=== PATIENT | male | born 1985 | race Caucasian/White ===

== ENCOUNTER 2018-02-08 08:13 | Day surgery (SDC) | payer BC, OTHER ==
[~2018-02-08 08:13] MED LIST: Buffered Lidocaine 0.9% SYRIN* 5 ML/SYR SYRINGE INTRADERM ONE; Ibuprofen TAB* 400 MG PO ONE; Sodium Citrate/Citric Acid* 15 ML UDC PO ONE
[2018-02-08] MEDS ORDERED: Ibuprofen TAB* 400 MG ONE (08:30)
[2018-02-08] MEDS ORDERED: Sodium Citrate/Citric Acid* 15 ML UDC ONE (08:30)
[2018-02-08] MEDS ORDERED: ceFAZolin 2 GM PREMIX (*) 2 GM/50 ML BAG IVPB ONE (08:30)
[2018-02-08] MEDS ORDERED: Saline, Bacteriostatic* 30 ML VIAL ONE (09:00)
[2018-02-08] MEDS ORDERED: Bupivacaine 0.5% SDV PF* 30ML VIAL ONE (09:00)
[2018-02-08] MEDS ORDERED: Propofol* 10 MG/ML 20 ML BTL IV PUSH ONE (09:23)
[2018-02-08] MEDS ORDERED: fentaNYL* 50 MCG/ML 2 ML VIAL (100 MCG VIAL) ONE ×2 (09:23→11:12)
[2018-02-08] MEDS ORDERED: Ketorolac INJ* 30 MG/ML 1 ML VIAL ONE (09:23)
[2018-02-08] MEDS ORDERED: Atracurium* 10 MG/ML 10 ML VIAL ONE (09:25)
[2018-02-08] MEDS ORDERED: Acetaminophen TAB* 325 MG PO PRN (10:04)
[2018-02-08] MEDS ORDERED: Naloxone* 0.4 MG/ML 1 ML VIAL IV PRN (10:04)
[2018-02-08] MEDS ORDERED: DiMENhydriNATE IV* 50 MG/ML VIAL IV PUSH PRN (10:04)
--- NOTE | 2018-02-08 11:00 | OP ---
Operative Report - Blank - Operative Report Date of Operation: 02/08/18 Note: Pre-op Dx: Bilateral Inguinal Hernia Post-op Dx: Same Procedure: Bilateral Laparoscopic Inguinal Hernia Repair with Mesh Surgeon: Brianne Assist: POPEYE Denny Anesthesia: GET IV Fluids: 800mL RL EBL: <10mL Specimen: None Drains: None Complications: None Findings: Dictated
[2018-02-08] MEDS ORDERED: Ibuprofen TAB* 600 MG PO PRN (11:01)
[2018-02-08] MEDS ORDERED: HYDROcodone/ACETAMIN 5-325 MG* 1 TAB PO PRN (11:01)
[2018-02-08] MEDS: fentaNYL* 50 MCG/ML 2 ML VIAL (100 MCG VIAL) IV PRN ×2 (11:13→11:18)
[2018-02-08] MEDS ORDERED: oxyCODONE TAB* 5 MG TAB ONE ×2 (11:27→11:51)
[2018-02-08] MEDS: oxyCODONE TAB* 5 MG TAB PO PRN ×2 (11:28→11:52)
[2018-02-08] MEDS ORDERED: Acetaminophen TAB* 325 MG ONE (11:51)
[2018-02-08 12:59] VITALS: BP 112/63
--- NOTE | 2018-02-10 22:18 | OP ---
CC: [facility] [place] * DATE OF OPERATION: 02/08/18 - [facility] DATE OF : 85. SURGEON: Alec Decker M.D. PUMP AND STILL OPERATOR: Dr. Galaviz. ANESTHESIOLOGIST: Dr. Castro. ANESTHESIA: General endotracheal. PRE-OP DIAGNOSIS: Bilateral inguinal hernias. POST-OP DIAGNOSIS: Bilateral inguinal hernias. OPERATIVE PROCEDURE: Laparoscopic preperitoneal repair of bilateral inguinal hernias with mesh and peritoneoscopy. ESTIMATED BLOOD LOSS: Minimal. IV FLUIDS: Crystalloids. SPECIMEN: None. DRAINS: None. COMPLICATIONS: None. COUNTS: The instrument, needle, and sponge counts were correct. DESCRIPTION OF PROCEDURE: The patient was brought to the operating room and placed on table supine. Sequential compression devices were placed on both lower extremities. General anesthesia was administered. Freitas catheter was placed. He was administered intravenous antibiotics and he was prepped and draped in the usual sterile fashion. Time-out was performed. Local anesthetic was infiltrated into the skin and soft tissue prior to each incision. The initial incision was a curvilinear infraumbilical incision and the anterior rectus fascia to the right of midline was incised transversally and the underlying muscles retracted laterally and the preperitoneal balloon dissector was placed down to the pubic symphysis. Insufflation was performed under direct visualization and then the balloon dissector was removed and replaced with a 12-mm blunt port. Under direct visualization, two 5-mm ports were placed in the lower midline. Dissection proceeded from the midline laterally towards the left side maintaining the inferior epigastric vessels anteriorly. The dissection proceeded laterally down to the anterior superior iliac spine. An indirect inguinal hernia sac was encountered and this was dissected free from cord structures. The sac was twisted upon itself, clipped, and then divided leaving the distal end open. The proximal end was ligated with 2-0 Vicryl suture tie as well. Peritoneal sac was dissected well off the retroperitoneal structures to allow adequate space for the Bard 3DMax large size mesh. Dissection then proceeded from the midline laterally to the right side, again encountering a similar inguinal hernia sac and this with this in the same fashion as had been done on the left side. The dissection was performed laterally to the anterior superior iliac spine as well. Next, repair was performed with Bard 3DMax mesh using the large size patch, positioned on the right side to cover the direct, indirect, and femoral spaces, taking down to the midline. The capsular retractor was used to secure the mesh to the pubic tubercle and to Anthony's ligament. The process was repeated to repair the left inguinal hernia. Subsequently, the preperitoneal space was allowed to desufflate and the 12- mm blunt port was repositioned to the peritoneum. The peritoneum was then insufflated with carbon dioxide to a pressure of 15 mmHg. An inspection of the inguinal regions was performed to assure the mesh lying in good position. The mesh was in good position on the right side; however, did require some repositioning on the left side in order to have it lay out appropriately. There was a small rent in the peritoneum on the left side noted as well and this was closed with endoscopic clip placement. Subsequently, the ports were removed. Carbon dioxide was released and the umbilical wound was closed with 0 Vicryl to approximate the anterior and posterior rectus fascia, and the skin incisions were closed with 4-0 Monocryl in subcuticular fashion. Steri-Strips were applied with dressings. The patient tolerated this procedure well. He was extubated and transferred to recovery room in stable condition. [id number]/[facility] #: [id number] MTDD
== END 2018-02-08 13:16 | disposition home or self-care (01) ==
LOC: OR 08:13
PROVIDERS: ATTEND Surgery
DX: K40.20 Bilateral inguinal hernia, without obstruction or gangrene, not specified as recurrent (principal)
CPT/HCPCS: A9270-GY; C1781; J0690; J1885; J2704; J3010